=== PATIENT | female | born 1970 | race Caucasian/White ===

== ENCOUNTER 2018-06-21 07:04 | Day surgery (SDC) | payer OTHER ==
[~2018-06-21 07:04] MED LIST: Lidocaine 1%/Sod Bicarbonate in NS 8.4% 1 ML Syringe IDERM PRN; Sodium Chloride 0.9% 10 ML Syringe FLUSH PRN
[2018-06-21] MEDS ORDERED: Lidocaine 1% with EPINEPHrine 1:100,000 20 ML MDV ONE (07:09)
[2018-06-21] MEDS ORDERED: Sodium Chloride 0.9% 50 ML SDV ONE (07:09)
--- NOTE | 2018-06-21 07:33 | PCM.PREANE ---
Preanesthetic Assessment - Procedure Proposed Procedure: TVH with BS - Anesthesia/Transfusion/Family Hx Anesthesia History: No Prior Anesthesia Family History of Anesthesia Reaction: No Transfusion History: No Prior Transfusion(s) Intubation History: Unknown - Review of Systems General: No Symptoms Pulmonary: No Symptoms Cardiovascular: No Symptoms Gastrointestinal: No Symptoms Neurological: No Symptoms Other: Reports: None - Physical Assessment NPO Status Date: 06/21/18 NPO Status Time: 21:00 Pulse: 71 O2 Sat by Pulse Oximetry: 99 Respiratory Rate: 16 Blood Pressure: 124/73 Height: 1.7 m ASA Class: 2 Mental Status: Alert & Oriented x3 Airway Class: Mallampati = 1 Dentition: Reports: Normal Dentition Thyro-Mental Finger Breadths: 3 Mouth Opening Finger Breadths: 5 ROM/Head Extension: Full Lungs: Clear to Auscultation, Normal Respiratory Effort Cardiovascular: Regular Rate, Regular Rhythm - Lab Values: Laboratory Last Values WBC 5.94 K/mm3 (3.98-10.04) 06/20/18 15:39 RBC 4.72 M/mm3 (3.98-5.22) 06/20/18 15:39 Hgb 11.2 gm/L (11.2-15.7) 06/20/18 15:39 Hct 34.5 % (34.1-44.9) 06/20/18 15:39 MCV 73.1 fl (79.4-94.8) L 06/20/18 15:39 MCH 23.7 pg (25.6-32.2) L 06/20/18 15:39 MCHC 32.5 g/dl (32.2-35.5) 06/20/18 15:39 RDW Std Deviation 37.9 fL (36.4-46.3) 06/20/18 15:39 Plt Count 347 K/mm3 (182-369) 06/20/18 15:39 MPV 9.0 fl (9.4-12.3) L 06/20/18 15:39 Neut % (Auto) 65.7 % (34.0-71.1) 06/20/18 15:39 Lymph % (Auto) 25.9 % (19.3-51.7) 06/20/18 15:39 [place] % (Auto) 6.7 % (4.7-12.5) 06/20/18 15:39 Eos % (Auto) 1.2 (0.7-5.8) 06/20/18 15:39 Baso % (Auto) 0.5 % (0.1-1.2) 06/20/18 15:39 Neut # (Auto) 3.90 K/mm3 (1.56-6.13) 06/20/18 15:39 Lymph # (Auto) 1.54 K/mm3 (1.18-3.74) 06/20/18 15:39 [place] # (Auto) 0.40 K/mm3 (0.24-0.36) H 06/20/18 15:39 Eos # (Auto) 0.07 K/mm3 (0.04-0.36) 06/20/18 15:39 Baso # (Auto) 0.03 K/mm3 (0.01-0.08) 06/20/18 15:39 Manual Slide Review Abnormal smear 06/20/18 15:39 Creatinine 0.8 mg/dL (0.55-1.02) 06/20/18 15:39 Est Cr Clr Drug Dosing TNP 06/20/18 15:39 Estimated GFR (MDRD) > 60 mL/min (>60) 06/20/18 15:39 Urine Color Light yellow (Yellow) 06/20/18 15:39 Urine Appearance Clear (Clear) 06/20/18 15:39 Urine pH 7.0 (5.0-8.0) 06/20/18 15:39 Ur Specific [place] 1.010 (1.005-1.030) 06/20/18 15:39 Urine Protein Negative (Negative) 06/20/18 15:39 Urine Glucose (UA) Negative (Negative) 06/20/18 15:39 Urine Ketones Negative (Negative) 06/20/18 15:39 Urine Occult Blood Negative (Negative) 06/20/18 15:39 Urine Nitrite Negative (Negative) 06/20/18 15:39 Urine Bilirubin Negative (Negative) 06/20/18 15:39 Urine Urobilinogen 0.2 (0.2-1.0) 06/20/18 15:39 Ur Leukocyte Esterase Negative (Negative) 06/20/18 15:39 Urine HCG, Qual Negative (NEGATIVE) 06/20/18 15:39 Blood Type O POSITIVE 06/20/18 15:39 Gel Antibody Screen Negative 06/20/18 15:39 - Allergies Allergies/Adverse Reactions: Allergies Allergy/AdvReac Type Severity Reaction Status Date / Time No Known Allergies Allergy Verified 06/20/18 11:36 - Blood Blood Available: Yes - Anesthesia Plan Pre-Op Medication Ordered: None - Acknowledgements Anesthesia Type Planned: General Anesthesia Pt an Appropriate Candidate for the Planned Anesthesia: Yes Alternatives and Risks of Anesthesia Discussed w Pt/Guardian: Yes Pt/Guardian Understands and Agrees with Anesthesia Plan: Yes PreAnesthesia Questionnaire HEENT History: Reports: Other (See Below) Other HEENT History: Mass right side of neck Cardiovascular History: Reports: None Respiratory History: Reports: None Gastrointestinal History: Reports: Other (See Below) Other Gastrointestinal History: Gilbert Syndrome Genitourinary History: Reports: None [employer] [employer] History: Reports: Dysfunctional Uterine Bleeding, Spontaneous , Other (See Below) Other OB/BYN History: Cervical polyp, leiomyoma of uterus Musculoskeletal History: Reports: None Neurological History: Reports: None Psychiatric History: Reports: None Endocrine/Metabolic History: Reports: None Hematologic History: Reports: None Immunologic History: Reports: None Oncologic (Cancer) History: Reports: None Dermatologic History: Reports: None - Past Surgical History Head Surgeries/Procedures: Reports: None HEENT Surgical History: Reports: Tonsillectomy Cardiovascular Surgical History: Reports: None Respiratory Surgical History: Reports: None Female Surgical History: Reports: D&C Endocrine Surgical History: Reports: None Neurological Surgical History: Reports: None Musculoskeletal Surgical History: Reports: None Oncologic Surgical History: Reports: None Dermatological Surgical History: Reports: None - SUBSTANCE USE Smoking Status *Q: Never Smoker Recreational Drug Use History: No - HOME MEDS Home Medications: Home Meds Cholecalciferol (Vitamin D3) [Vitamin D3] 1,000 unit PO DAILY 06/20/18 [History] Fish Oil/[place]-3 Fatty Acids [Fish Oil 1,000 MG] 1,000 mg PO DAILY 06/20/18 [ History] Multivitamin [Daily Multiple Vitamin] 1 tab PO DAILY 06/20/18 [History] - CURRENT (IN HOUSE) MEDS Current Meds: Current Medications Lactated Ringer's (Ringers, Lactated) 1,000 mls @ 125 mls/hr IV ASDIRECTED WOODY Stop: 06/21/18 23:00 Lidocaine/Sodium Bicarbonate (Buffered Lidocaine 1% In Ns 8.4%) 0.25 ml IDERM ONETIME PRN PRN Reason: Prior to IV Start Stop: 06/21/18 18:00 Sodium Chloride (Saline Flush) 10 ml FLUSH ASDIRECTED PRN PRN Reason: Keep Vein Open Stop: 06/21/18 18:00 Discontinued Medications Lidocaine/Epinephrine (Xylocaine 1% With Epinephrine 1:100,000) Confirm Administered Dose 20 ml .ROUTE .STK-MED ONE Stop: 06/21/18 07:10 Sodium Chloride (Normal Saline) Confirm Administered Dose 50 ml .ROUTE .STK-MED ONE Stop: 06/21/18 07:10
[2018-06-21] MEDS: Lactated Ringers 1,000 ML IV SCH ×2 (07:35→10:35)
[2018-06-21] MEDS ORDERED: Propofol 200 MG/20 ML SDV ONE (07:38)
[2018-06-21] MEDS ORDERED: fentaNYL 100 MCG/2 ML SDV ONE (07:38)
[2018-06-21] MEDS ORDERED: Midazolam 1 MG/ML 2 ML SDV ONE (07:39)
[2018-06-21] MEDS ORDERED: Lidocaine 1% 4 ML ONE (07:39)
[2018-06-21] MEDS ORDERED: Ondansetron 4 MG/2 ML SDV ONE (07:45)
[2018-06-21] MEDS ORDERED: Ketorolac 30 MG/ML SDV ONE (07:45)
[2018-06-21] MEDS ORDERED: Dexamethasone 4 MG/ML 5 ML MDV ONE (07:45)
[2018-06-21] MEDS ORDERED: ceFAZolin 1 GM Vial ONE (07:45)
[2018-06-21] MEDS ORDERED: HYDROmorphone 0.5 MG/0.5 ML Syringe ONE (08:52)
[2018-06-21] MEDS ORDERED: Lactated Ringers 1,000 ML ONE (09:07)
[2018-06-21] MEDS ORDERED: Ketamine 500 mg/10 ML MDV ONE (09:16)
[2018-06-21] MEDS ORDERED: Ondansetron 4 MG/2 ML SDV IVPUSH PRN ×2 (09:30→09:55)
[2018-06-21] MEDS ORDERED: Acetaminophen/oxyCODONE 325-5 MG Tab PO PRN (09:30)
--- NOTE | 2018-06-21 09:34 | PCM.OPNOTE ---
- General Post-Op/Procedure Note Date of Surgery/Procedure: 06/21/18 Operative Procedure(s): Total vaginal hysterectomy with bilateral salpingectomy Findings: Uterus is mildly enlarged. Fallopian tubes and ovaries were normal in appearance. Pre Op Diagnosis: 1. Menorrhagia. 2. Dysmenorrhea. 3. Uterine fibroid Post-Op Diagnosis: Same Anesthesia Technique: General ET Tube Other Anesthesia Type: Lidocaine quarter percent with mL total. Primary Surgeon: Carmine Odonnell Secondary Surgeon: Shawn Farah Anesthesia Provider: Tawana Riojas Spray Applicator: Jimenez Tsai Reason Spray Applicator Was Necessary: Assistance, retraction, patient safety, quality of care. Pathology: Uterus, bilateral fallopian tubes in one specimen container Fluid Replacement, Intraop: 1,800 EBL in mLs: 175 Complications: None Condition: Good Free Text/Narrative:: Surgery duration: 30 minutes Procedure: The patient was placed in supine position on the operating table. General endotracheal anesthesia was accomplished. After positioning, and adequate prep and drape, the procedure was then performed. Sterile speculum was placed in the vagina and cervix was visualized. Cervix was injected with lidocaine quarter percent with epinephrine-20 mL used. A full circumference incision was made in the cervical epithelium. The bladder was pushed well back off cervix. Posterior cul-de-sac was then entered sharply without problems. Left uterosacral was crossclamped with a Enseal vessel closure system. The left uterosacral and then the right uterosacral ligament pedicles were developed using the Enseal system. The anterior cul-de-sac was then entered without problems and the uterine vasculature, cardinal ligament and broad ligament then developed using Enseal vessel closure system. The uterus was inverted at this time and upper broad ligament fallopian tube pedicles were crossclamped with Ellen clamps. Specimen was totally removed. Both these pedicles were then secured with a Ellen stitch of #1 Vicryl. Left and right fallopian tube was normal in appearance.. Using Enseal vessel closure system each of the tubes was then removed and sent with the specimen. The patient was found to be hemostatically intact at this time. Vaginal cuff was sutured for hemostatic reasons with a running locked suture of 0 Monocryl from the 2 o'clock position to the 10 o'clock position posteriorly. Vaginal cuff was then closed from right to left side with a running locked suture of 0 Monocryl. Patient was returned to supine position and awakened from general endotracheal anesthesia. She tolerated the procedure and left the operating room in satisfactory condition.
--- NOTE | 2018-06-21 09:54 | PCM.POSTAN ---
POST ANESTHESIA ASSESSMENT - MENTAL STATUS Mental Status: Other (drowsy ) - VITAL SIGNS Pulse Rate: 90 SaO2: 99 Resp Rate: 16 Blood Pressure: 127/64 Temperature: 36.4 C - RESPIRATORY Respiratory Status: Respiratory Rate WNL, Airway Patent, O2 Saturation Stable, Supplemental Oxygen - CARDIOVASCULAR CV Status: Pulse Rate WNL, Blood Pressure Stable - GASTROINTESTINAL GI Status: No Symptoms - POST OP HYDRATION Hydration Status: Adequate & Stable
[2018-06-21] MEDS ORDERED: fentaNYL 100 MCG/2 ML SDV IVPUSH PRN (09:55)
[2018-06-21] MEDS ORDERED: diphenhydrAMINE 50 MG/ML SDV IVPUSH PRN (09:55)
== END 2018-06-21 15:03 | disposition home or self-care (01) ==
LOC: JD.SDS 07:04
PROVIDERS: ATTEND Obstetrics & Gynecology
DX: D25.9 Leiomyoma of uterus, unspecified (principal); N83.8 Other noninflammatory disorders of ovary, fallopian tube and broad ligament; E80.4 Gilbert syndrome; K21.9 Gastro-esophageal reflux disease without esophagitis; K44.9 Diaphragmatic hernia without obstruction or gangrene; Z79.899 Other long term (current) drug therapy
CPT/HCPCS: 36415; 58260; 81003; 81025; 82565; 85025; 86850; 86900; 86901; A9270; J0690; J1100; J1170; J1200; J1885; J2001; J2250; J2405; J2704; J3010; J7120; 00944